=== PATIENT | female | born 1965 | race Two or more races ===

== ENCOUNTER 2016-11-03 12:29 | Emergency (ER) | payer OTHER ==
[2016-11-03 13:19] VITALS: BP 145/129
--- NOTE | 2016-11-03 13:36 | UC ---
Skin Complaint HPI - HPI Summary HPI Summary: boil on top the right foot + pain and swelling, no significant drainage / discharge no fever, no chills - History of Current Complaint Chief Complaint: UCSkin Time Seen by Provider: 11/03/16 13:03 Stated Complaint: RIGHT FOOT SKIN COMPLAINT Hx Obtained From: Patient Hx Last Menstrual Period: 10/22/15 ?: No Onset/Duration: Gradual Onset, Lasting Days - 4, Still Present Timing: Constant Onset Severity: Moderate Current Severity: Moderate Location: Foot (Right) - top of the right foot Character: Swelling, Pain, Redness, Raised, Painful Aggravating: Touch Alleviating: Heat Associated Signs & Symptoms: Positive: Tenderness. Negative: Drainage, Red Streaks - Allergy/Home Medications Allergies/Adverse Reactions: Allergies Allergy/AdvReac Type Severity Reaction Status Date / Time Oxytocin [From Pitocin] Allergy Unknown Syncope Verified 11/03/16 13:13 [place] Meal Allergy Tongue Verified 11/03/16 13:13 Swelling [place] Oil Allergy Tongue Verified 11/03/16 13:13 Swelling Lactose Intolerance (GI) Allergy Abdominal Verified 11/03/16 13:13 Pain Molds & Smuts Allergy Congestion Verified 11/03/16 13:13 and Difficulty Breathing Spiders Allergy Itching Uncoded 11/03/16 13:13 and Swelling walnuts Allergy Tongue Uncoded 11/03/16 13:13 Swelling Home Medications: Home Medications Albuterol HFA INHALER* [Ventolin HFA Inhaler*] 1 - 2 puff INH Q4H PRN 11/03/16 [ History Confirmed 11/03/16] Budesonide/Formote 160/4.5(NF) [Symbicort 160/4.5 (NF)] 1 puff INH BID 11/03/16 [History Confirmed 11/03/16] Review of Systems Constitutional: Negative Skin: Other - boild right foot Eyes: Negative ENT: Negative Respiratory: Negative All Other Systems Reviewed And Are Negative: Yes PMH/Surg Hx/FS Hx/Imm Hx Endocrine History Of: Reports: Thyroid Disease Cardiovascular History Of: Reports: Hypertension Respiratory History Of: Reports: Asthma - Surgical History Surgical History: Yes Surgery Procedure, Year, and Place: . D & C - Family History Known Family History: Negative: Diabetes - Social History Alcohol Use: Occasionally Substance Use Type: Marijuana Substance Use Comment - Amount & Last Used: "Whenever I want" & 11/02/16 Smoking Status (MU): Never Smoked Tobacco Have You Smoked in the Last Year: No - Immunization History Most Recent Influenza Vaccination: Not the Season Most Recent Tetanus Shot: ~1994 Physical Exam Triage Information Reviewed: Yes Appearance: Well-Appearing, No Pain Distress, Well-Nourished Vital Signs: Initial Vital Signs Temp 97.8 F 11/03/16 13:07 Pulse 90 11/03/16 13:07 Resp 16 11/03/16 13:07 BP 145/129 11/03/16 13:07 Pulse Ox 100 11/03/16 13:07 Vital Signs Reviewed: Yes Eyes: Positive: Conjunctiva Clear ENT: Positive: Normal ENT inspection, Hearing grossly normal, Pharynx normal Neck exam: Normal Neck: Positive: Supple, Nontender, No Lymphadenopathy Respiratory: Positive: Chest non-tender, Lungs clear, Normal breath sounds Cardiovascular: Positive: RRR, No Murmur, Pulses Normal Skin: Positive: Other - + abscess top the right foot, + swelling, tender, erythema, minimal discharge Course/Dx - Diagnoses Provider Diagnoses: abscess right foot Discharge - Discharge Plan Condition: Stable Disposition: HOME Prescriptions: Cephalexin CAP* [Keflex CAP*] 500 mg PO TID #30 cap Patient Education Materials: Abscess (ED) Referrals: Siddharth Calix MD [Primary Care Provider] - 3 Days
== END 2016-11-03 13:38 | disposition home or self-care (01) ==
LOC: UCCORT 12:29
DX: L02.611 Cutaneous abscess of right foot (principal); J45.909 Unspecified asthma, uncomplicated; F12.90 Cannabis use, unspecified, uncomplicated
CPT/HCPCS: 99212; G0463

== ENCOUNTER 2017-04-11 16:44 | Emergency (ER) | payer OTHER ==
[2017-04-11] MEDS ORDERED: methylPREDNISolone 125 MG* 2 ML VIAL IV ONE (17:09)
[2017-04-11] MEDS ORDERED: diPHENhydraMINE IV* 50 MG/ML 1 ml VIAL (BENADRYL) IV ONE (17:09)
[2017-04-11] MEDS ORDERED: Famotidine IV* 10 MG/ML 2 ML (20 mg) IV ONE (17:09)
[2017-04-11] MEDS ORDERED: NS 0.9% 1000 ML* 1,000 ML IV SCH (17:15)
[2017-04-11] MEDS ORDERED: predniSONE TAB* 20 MG PO ONE (19:33)
[2017-04-11] MEDS ORDERED: Famotidine TAB* 20 MG PO ONE (19:34)
--- NOTE | 2017-04-11 19:38 | ED ---
Edna Copeland Edward, scribed for Félix Prabhakar MD on 04/11/17 at 1707 . Allergic Reaction/Systemic - HPI Summary HPI Summary: 51 y/o female presents to ED s/p allergic reaction to multiple bee stings. She was stung at around 16:53 today, a few minutes [employer]. The patient was driving when it happened. She c/o raised regions of swelling and severe pruritus on both of her arms and hands. The itching is constant. She also c/o intermittent stabbing pains in those regions. The pain is rated 8/10 in severity at triage. Denies difficulty swallowing. - History of Current Complaint Chief Complaint: EDAllergicReaction Time Seen by Provider: 04/11/17 17:06 Hx Obtained From: Patient Hx Last Menstrual Period: 10/22/15 Onset/Duration: Sudden Onset Timing: Constant Severity Currently: Severe Pain Intensity: 8 Pain Scale Used: 0-10 Numeric Location: Diffuse - Both hands and upper arms Character: Swelling, Pruritus, Pain, Hives Associated Signs And Symptoms: Positive: Rash. Negative: Difficulty Breathing, Throat Tightening - Allergies/Home Medications Allergies/Adverse Reactions: Allergies Allergy/AdvReac Type Severity Reaction Status Date / Time Oxytocin [From Pitocin] Allergy Unknown Syncope Verified 11/03/16 13:13 [place] Meal Allergy Tongue Verified 11/03/16 13:13 Swelling [place] Oil Allergy Tongue Verified 11/03/16 13:13 Swelling Lactose Intolerance (GI) Allergy Abdominal Verified 11/03/16 13:13 Pain Molds & Smuts Allergy Congestion Verified 11/03/16 13:13 and Difficulty Breathing Spiders Allergy Itching Uncoded 11/03/16 13:13 and Swelling walnuts Allergy Tongue Uncoded 11/03/16 13:13 Swelling PMH/Surg Hx/FS Hx/Imm Hx Previously Healthy: No Endocrine/Hematology History: Reports: Hx Thyroid Disease Cardiovascular History: Reports: Hx Hypertension Respiratory History: Reports: Hx Asthma - Cancer History Hx Chemotherapy: No Hx Radiation Therapy: No - Surgical History Surgery Procedure, Year, and Place: . D & C Infectious Disease History: Denies: Traveled Outside the [place] in Last 30 Days - Family History Known Family History: Negative: Diabetes - Social History Alcohol Use: Occasionally Hx Substance Use: Yes Substance Use Type: Reports: Marijuana Substance Use Comment - Amount & Last Used: "Whenever I want" & 03/13/17 Hx Tobacco Use: No Smoking Status (MU): Never Smoked Tobacco Have You Smoked in the Last Year: No Review of Systems Constitutional: Negative Eyes: Negative ENT: Negative - No difficulty swallowing Cardiovascular: Negative Respiratory: Negative Gastrointestinal: Negative Genitourinary: Negative Musculoskeletal: Negative Skin: Other - Raised regions of itching, swelling and erythema on both hands and arms Neurological: Negative Psychological: Normal All Other Systems Reviewed And Are Negative: Yes Physical Exam Triage Information Reviewed: Yes Vital Signs On Initial Exam: Initial Vitals Temp Pulse Resp BP Pulse Ox 97.4 F 86 18 119/68 98 04/11/17 16:52 04/11/17 16:52 04/11/17 16:52 04/11/17 16:52 04/11/17 16:52 Vital Signs Reviewed: Yes Appearance: Positive: Well-Appearing, No Pain Distress Skin: Positive: Warm, Skin Color Reflects Adequate Perfusion, Dry, Other - Hives on both hands and arms Head/Face: Positive: Normal Head/Face Inspection Eyes: Positive: EOMI, WOLF ENT: Positive: Normal ENT inspection - Throat open Neck: Positive: Supple, Nontender Respiratory/Lung Sounds: Positive: Clear to Auscultation, Breath Sounds Present Cardiovascular: Positive: RRR Abdomen Description: Positive: Nontender, Soft Bowel Sounds: Positive: Present Musculoskeletal: Positive: Normal, Strength/ROM Intact Neurological: Positive: Normal, Sensory/Motor Intact, Alert, Oriented to Person Place, Time Psychiatric: Positive: Normal, Affect/Mood Appropriate Diagnostics - Vital Signs Vital Signs Temp Pulse Resp BP Pulse Ox 04/11/17 16:52 97.4 F 86 18 119/68 98 - Laboratory Lab Statement: Any lab studies that have been ordered have been reviewed, and results considered in the medical decision making process. Allergic Reaction Course/Dx - Course Course Of Treatment: IMPROVED INED. DISPCHARGE HOME STABLE. NO CRITICAL CARE TIME. - Diagnoses Provider Diagnoses: Allergic reaction to bee sting Discharge - Discharge Plan Condition: Stable Disposition: HOME Prescriptions: Famotidine TAB* [Pepcid 20 MG TAB*] 20 mg PO BID PRN #8 tab PRN Reason: Allergy Symptoms predniSONE TAB* [Deltasone TAB*] 40 mg PO DAILY PRN #8 tab PRN Reason: Allergy Symptoms Patient Education Materials: General Allergic Reaction (ED) Referrals: Emili Tavares MD [Primary Care Provider] - Additional Instructions: FOLLOW UP WITH YOUR DOCTOR. RETURN TO THE EMERGENCY DEPARTMENT FOR ANY WORSENING OF YOUR CONDITION OR QUESTIONS OR CONCERNS. The documentation as recorded by the Edna huitron Edward accurately reflects the service I personally performed and the decisions made by me, Félix Prabhakar MD.
[2017-04-11 20:40] VITALS: BP 111/68
== END 2017-04-11 20:51 | disposition home or self-care (01) ==
LOC: ED 16:44
DX: T63.441A Toxic effect of venom of bees, accidental (unintentional), initial encounter (principal); R21 Rash and other nonspecific skin eruption; Y92.89 Other specified places as the place of occurrence of the external cause
CPT/HCPCS: 96374; 96375; 99284; A9270-GY; J1200; J2930; J7512

== ENCOUNTER 2019-06-23 10:21 | Emergency (ER) | payer SELFPAY ==
--- NOTE | 2019-06-23 10:31 | UC ---
General HPI - HPI Summary HPI Summary: Patient is 53-year-old female presenting with tick bite to abdomen. She states she noticed this morning that is still attached. She believes it has been attached for at least 2 days now. Notes itching. Denies drainage or bleeding from the tick bite. Denies fever and chills. - History of Current Complaint Stated Complaint: tick bite tummy Hx Obtained From: Patient Hx Last Menstrual Period: 10/22/15 - Allergy/Home Medications Allergies/Adverse Reactions: Allergies Allergy/AdvReac Type Severity Reaction Status Date / Time almond oil Allergy tongue Verified 06/23/19 10:39 swelling lactose Allergy Abdominal Verified 06/23/19 10:39 Pain mold Allergy Congestion Verified 06/23/19 10:39 oxytocin [From Pitocin] Allergy See Comment Verified 06/23/19 10:39 almond meal Allergy See Comment Uncoded 06/23/19 10:39 Spiders Allergy Itching Uncoded 11/03/16 13:13 and Swelling walnuts Allergy Tongue Uncoded 11/03/16 13:13 Swelling Home Medications: Home Medications Fluticasone/Vilanterol MDI(NF) [Breo Ellipta MDI (NF)] 1 puff INH DAILY [History Confirmed 06/23/19] PMH/Surg Hx/FS Hx/Imm Hx Cardiovascular History: Hypertension - Surgical History Surgical History: Yes Surgery Procedure, Year, and Place: . D & C - Family History Known Family History: Negative: Diabetes - Social History Alcohol Use: Occasionally Substance Use Type: Marijuana Substance Use Comment - Amount & Last Used: "Whenever I want" & 11/02/16 Smoking Status (MU): Never Smoked Tobacco Have You Smoked in the Last Year: No - Immunization History Most Recent Influenza Vaccination: Not the 2016/2017 Season Most Recent Tetanus Shot: ~1994 Review of Systems All Other Systems Reviewed And Are Negative: Yes Constitutional: Positive: Negative Skin: Positive: Other - Tick bite on abdomen Respiratory: Positive: Negative Cardiovascular: Positive: Negative Gastrointestinal: Positive: Negative Neurological: Positive: Negative Physical Exam Triage Information Reviewed: Yes Appearance: Well-Appearing, No Pain Distress, Well-Nourished Vital Signs: Vital Signs (72 hours) 06/23/19 10:30 Temperature 98.8 F Pulse Rate 77 Respiratory 18 Rate Blood Pressure 130/66 (mmHg) O2 Sat by Pulse 100 Oximetry Vital Signs Reviewed: Yes Eyes: Positive: Conjunctiva Clear ENT: Positive: Hearing grossly normal Neck: Positive: Supple Respiratory: Positive: No respiratory distress Neurological: Positive: Alert Psychological: Positive: Age Appropriate Behavior Skin: Positive: Other - Tick bite on right lower abdomen. Tick still attached. No drainage or bleeding. Small area of erythema around tick Course/Dx - Course Course Of Treatment: I removed the entire tick with a tick twister and treated with a one-time dose of Doxy to prevent Lyme disease. Instructed patient to look for s/s of infection within next few days and to follow up with PCP if needed. Patient voiced understanding and agreed with the treatment plan. - Diagnoses Provider Diagnosis: Tick bite of abdomen Discharge ED - Sign-Out/Discharge Documenting (check all that apply): Patient Departure All imaging exams completed and their final reports reviewed: No Studies - Discharge Plan Condition: Stable Disposition: HOME Prescriptions: DOXYcycline CAP(*) [DOXYcycline 100MG CAP(*)] 200 mg PO ONCE #2 cap Patient Education Materials: Tick Bite (ED) Referrals: Emili Tavares MD [Primary Care Provider] - If Needed Additional Instructions: As discussed, take the one-time dose of Doxycycline as prescribed to you to prevent Lyme Disease. It is recommended that you take this with food to avoid stomach upset. No further treatment is required. Follow up with your PCP if within the next month you experience a rash where you were the tick bit you. Go to the emergency room if you experience increasing redness, warmth, or drainage from the area within the next few days. - Billing Disposition and Condition Condition: STABLE Disposition: Home
[2019-06-23 10:37] VITALS: BP 130/66
== END 2019-06-23 10:55 | disposition home or self-care (01) ==
LOC: UCCORT 10:21
DX: S30.861A Insect bite (nonvenomous) of abdominal wall, initial encounter (principal); I10 Essential (primary) hypertension; Z91.011 Allergy to milk products; Z91.038 Other insect allergy status; Z91.018 Allergy to other foods; Z88.8 Allergy status to other drugs, medicaments and biological substances; Z91.09 Other allergy status, other than to drugs and biological substances; W57.XXXA Bitten or stung by nonvenomous insect and other nonvenomous arthropods, initial encounter; Y92.9 Unspecified place or not applicable
CPT/HCPCS: 99212; G0463